=== PATIENT | male | born 1970 | race Caucasian/White ===

== ENCOUNTER 2016-02-10 11:49 | Inpatient (IN) | payer OTHER ==
[2016-02-10 12:38] VITALS: BMI 19.3
--- NOTE | 2016-02-10 15:26 | HP ---
Admission ROS [facility] - [facility] Chief Complaint: NEEDS REHAB TO STOP USING ALCOHOL & COCAINE Allergies/Adverse Reactions: Allergies Allergy/AdvReac Type Severity Reaction Status Date / Time No Known Allergies Allergy Verified 02/10/16 14:57 History of Present Illness: 45 Y/O MAN WITH A LONG HX. OF COCAINE AND ALCOHOL DEPENDENCE IS ADMITTED TO REHAB.PT. WAS SENT HERE BY HIS MANUGRAPHER. PT. HAS HX. OF SEIZURE SINCE CHILDHOOD,HE HAS BEEN OFF MEDS FOR OVER TWO YEARS.HIS LAST SEIZURE MEDICATION WAS KEPPRA. Exam Limitations: No Limitations - Ebola screening Have you traveled outside of the country in the last 21 days: No Have you had contact with anyone from an Ebola affected area: No Have you been sick,other than usual withdrawal symptoms: No Do you have a fever: No - Review of Systems Constitutional: No Symptoms Reported EENT: reports: No Symptoms Reported Respiratory: reports: No Symptoms reported Cardiac: reports: No Symptoms Reported GI: reports: No Symptoms Reported : reports: No Symptoms Reported Musculoskeletal: reports: No Symptoms Reported Integumentary: reports: No Symptoms Reported Neuro: reports: Seizure (> 2 YRS AGO) Endocrine: reports: No Symptoms Reported Hematology: reports: No Symptoms Reported Psychiatric: reports: No Sypmtoms Reported Other Systems: Reviewed and Negative Patient History - Patient Medical History Hx Anemia: No Hx Asthma: No Hx Chronic Obstructive Pulmonary Disease (COPD): No Hx Cancer: No Hx Cardiac Disorders: No Hx Congestive Heart Failure: No Hx Hypertension: No Hx Hypercholesterolemia: No Hx Pacemaker: No HX Cerebrovascular Accident: No Hx Seizures: Yes (LAST OVER TWO YRS. AGO) Hx Dementia: No Hx Diabetes: No Hx Gastrointestinal Disorders: No Hx Liver Disease: No Hx Genitourinary Disorders: No Hx Sexually Transmitted Disorders: No Hx Renal Disease (ESRD): No Hx Thyroid Disease: No Hx Human Immunodeficiency Virus (HIV): No Hx Hepatitis C: No Hx Depression: Yes Hx Suicide Attempt: No Hx Bipolar Disorder: No Hx Schizophrenia: No - Patient Surgical History Past Surgical History: No - PPD History Previous Implant?: Yes Documented Results: Negative w/o proof PPD to be Administered?: Yes - Smoking Cessation Smoking history: Never smoked - Substance & Tx. History Hx Alcohol Use: Yes Hx Substance Use: Yes Substance Use Type: Alcohol, Cocaine Hx Substance Use Treatment: No - Substances Abused Alcohol Route: Oral Frequency: 1-2 times per week (OR 3X/WK) Amount used: VODKA 1/2 Age of first use: 23 Date of Last Use: 02/08/16 Crack Route: Smoking Frequency: 1-2 times per week Amount used: $10.00 Age of first use: 28 Date of Last Use: 02/08/16 Family Disease History - Family Disease History Family Disease History: Diabetes: Mother (HTN), Heart Disease: Father (HTN), Mother Admission Physical Exam [facility] - Vital Signs Vital Signs: Vital Signs - 24 hr 02/10/16 12:36 Temperature 96.5 F L Pulse Rate 90 Respiratory 18 Rate Blood Pressure 114/70 - Physical General Appearance: Yes: Within Normal Limits HEENTM: Yes: Within Normal Limits Respiratory: Yes: Chest Non-Tender, Lungs Clear, Normal Breath Sounds Neck: Yes: Supple Breast: Yes: Breast Exam Deferred Cardiology: Yes: Regular Rhythm, Regular Rate, S1, S2 Abdominal: Yes: Normal Bowel Sounds, Non Tender, Flat, Soft Genitourinary: Yes: Within Normal Limits Back: Yes: Within Normal Limits Musculoskeletal: Yes: Within Normal Limits Extremities: Yes: Within Normal Limits Neurological: Yes: Fully Oriented, Alert Integumentary: Yes: Within Normal Limits Lymphatic: Yes: Within Normal Limits - Diagnostic (1) Alcohol dependence, uncomplicated Current Visit: Yes Status: Acute (2) Cocaine dependence, uncomplicated Current Visit: Yes Status: Acute (3) History of seizure Current Visit: Yes Status: Inactive Cleared for Admission [facility] - Detox or Rehab Claeared for Rehab Admission: Yes [facility] Breath Alcohol Content Breath Alcohol Content: 0 Urine Drug Screen - Results Drug Screen Negative: No Urine Drug Screen Results: ARAVIND-Cocaine
[2016-02-10] MEDS ORDERED: IBUPROFEN 400 MG TABLET (FP) PO PRN (15:44)
[2016-02-10] MEDS ORDERED: MAGNESIUM CITRATE 300 ML BOTTLE PO PRN (15:44)
[2016-02-10] MEDS ORDERED: MAG HYDROX/AL HYDROX/SIMETH 30 ML UNIT-DOSE CUP PO PRN (15:44)
[2016-02-10] MEDS ORDERED: MAGNESIUM HYDROX 2400MG/30ML ORAL SUSPENSION 30 ML CUP PO PRN (15:44)
[2016-02-10] MEDS ORDERED: LOPERAMIDE HCL 2 MG CAPSULE PO PRN (15:44)
[2016-02-10] MEDS ORDERED: ACETAMINOPHEN 325 MG TABLET (FP) PO PRN (15:44)
[2016-02-10 20:05] LABS: URINE APPEARANCE SLCLOUDY; URINE BILIRUBIN NEGATIVE (NEGATIVE); URINE BLOOD NEGATIVE (NEGATIVE); URINE COLOR DKYELLOW; URINE GLUCOSE (UA) NEGATIVE (NEGATIVE); URINE KETONE NEGATIVE (NEGATIVE); URINE NITRITE NEGATIVE (NEGATIVE); URINE PROTEIN NEGATIVE (NEGATIVE); URINE UROBILINOGEN NEGATIVE E.U./dl (0.2-1.0)
[2016-02-10 20:06] LABS: URINE LEUK ESTERASE 3+ (NEGATIVE)
[2016-02-10 20:47] LABS: URINE MUCUS RARE; URINE RBC 19 /hpf (0-3); URINE WBC 108 /hpf (3-5)
[2016-02-10] MEDS: THIAMINE HCL 100 MG TABLET (FP) PO SCH (21:42)
[2016-02-10] MEDS ORDERED: diphenhydrAMINE HCL 50 MG CAPSULE PO PRN (22:00)
[2016-02-11] MEDS: PRENATAL VITAMINS W/ FOLIC ACID TABLET (FP) PO SCH (10:19)
--- NOTE | 2016-02-11 11:13 | HP ---
Psychiatrist Admission - Data Date of interview: 02/11/16 Admission source: [facility] Identifying data: This is the first [facility] inpatient rehabilitation admission for thsi 45 year old single black male, no children, unemployed, domilced. Medical History: hx of seizure since childhood, has been off meds for the past 2 years. Psychiatric History: denies history of psychiatric treatment. Physical/Sexual Abuse/Trauma History: deniues history of sexual, physical and verbal abuse. Vital Signs: Vital Signs - 24 hr 02/10/16 02/10/16 02/11/16 12:36 17:00 00:30 Temperature 96.5 F L 97.1 F L Pulse Rate 90 82 Respiratory 18 18 18 Rate Blood Pressure 114/70 132/80 02/11/16 02/11/16 03:30 07:09 Temperature 96.9 F L Pulse Rate 76 Respiratory 18 18 Rate Blood Pressure 99/69 Allergies/Adverse Reactions: Allergies Allergy/AdvReac Type Severity Reaction Status Date / Time No Known Allergies Allergy Verified 02/10/16 14:57 Date of last physical exam: 02/10/16 Concur with the findings of this exam: Yes - Substance Abuse/Tx History Hx Alcohol Use: Yes (vodka 1/2 pinevery other day) Hx Substance Use: Yes Substance Use Type: Cocaine ($10 every other day) Hx Substance Use Treatment: Yes (no previous tx, first treatment) - Admission Criteria Previous failed treatment: Yes Poor recovery environment: No Comorbidities: No Lacks judgement: Yes Mental Status Exam - Mental Status Exam Alert and Oriented to: Time, Place, Person Cognitive Function: Grossly Intact Patient Appearance: Well Groomed Mood: Hopeful Affect: Appropriate, Mood Congruent Patient Behavior: Appropriate, Cooperative Speech Pattern: Clear, Appropriate Voice Loudness: Normal Thought Process: Goal Oriented Thought Disorder: Not Present Hallucinations: Denies Suicidal Ideation: Denies Homicidal Ideation: Denies Insight/Judgement: Fair Sleep: Difficulty falling asleep Appetite: Fair Muscle strength/Tone: Normal Gait/Station: Normal Psychiatric Findings - Problem List ([place] 1, 2,3) (1) Alcohol dependence, uncomplicated Current Visit: Yes Status: Acute (2) Cocaine dependence, uncomplicated Current Visit: Yes Status: Acute - Initial Treatment Plan Initial Treatment Plan: Patient are made aware about Benadryl PRN for sleeping, will monitor progress as needed.
[2016-02-11 11:27] LABS: MCH 28.3 pg (25.7-33.7); MCHC 32.5 g/dl (32.0-35.9); MEAN CELL VOLUME 87.1 fl (80-96); MEAN PLT VOLUME 7.9 fl (7.5-11.1); PLATELET COUNT 257 K/MM3 (134-434); RDW 14.1 % (11.9-15.9); WHITE BLOOD COUNT 4.8 K/mm3 (4.0-10.0)
[2016-02-11 12:10] LABS: ALBUMIN 3.4 g/dl (3.4-5.0); ANION GAP 7 (8-16); CALCIUM 8.6 mg/dL (8.5-10.1); CO2 27 mmol/L (21-32); CREATININE 1.1 mg/dL (0.7-1.3); GLUCOSE,RANDOM 142 mg/dL (74-106); SGOT/AST 8 U/L (15-37); SGPT/ALT 20 U/L (12-78)
[2016-02-11 12:12] LABS: ALK PHOS 109 U/L (45-117); BILIRUBIN,TOTAL 0.4 mg/dL (0.2-1.0); TOT PROT 6.4 g/dl (6.4-8.2)
[2016-02-11 12:25] LABS: HIV 1 & 2 AB NEGATIVE; HIV 1 AGp24 NEGATIVE
[2016-02-11] MEDS: THIAMINE HCL 100 MG TABLET (FP) PO SCH (21:25)
[2016-02-12] MEDS: PRENATAL VITAMINS W/ FOLIC ACID TABLET (FP) PO SCH (10:06)
--- NOTE | 2016-02-12 15:36 | PN ---
S Progress Note Note: patient c/o insomnia, Benadryl not effective, will add Vistaril 50 mg po hs
[2016-02-12] MEDS: hydrOXYzine PAMOATE 50 MG CAPSULE (FP) PO SCH (21:15)
[2016-02-12] MEDS: THIAMINE HCL 100 MG TABLET (FP) PO SCH (21:15)
[2016-02-13] MEDS: PRENATAL VITAMINS W/ FOLIC ACID TABLET (FP) PO SCH (10:01)
[2016-02-13] MEDS: hydrOXYzine PAMOATE 50 MG CAPSULE (FP) PO SCH (21:14)
[2016-02-13] MEDS: THIAMINE HCL 100 MG TABLET (FP) PO SCH (21:14)
[2016-02-14] MEDS: PRENATAL VITAMINS W/ FOLIC ACID TABLET (FP) PO SCH (09:38)
[2016-02-14] MEDS: hydrOXYzine PAMOATE 50 MG CAPSULE (FP) PO SCH (21:12)
[2016-02-14] MEDS: THIAMINE HCL 100 MG TABLET (FP) PO SCH (21:12)
[2016-02-14] MEDS: guaiFENesin/D-METHORPHAN HB 10 ML UNIT-DOSE CUPS PO PRN (21:50)
[2016-02-14] MEDS: MENTHOL/PHENOL 1 EACH UD MM PRN (21:50)
[2016-02-15] MEDS: PRENATAL VITAMINS W/ FOLIC ACID TABLET (FP) PO SCH (09:59)
[2016-02-15] MEDS: hydrOXYzine PAMOATE 50 MG CAPSULE (FP) PO SCH (21:06)
[2016-02-15] MEDS: THIAMINE HCL 100 MG TABLET (FP) PO SCH (21:06)
[2016-02-15] MEDS: guaiFENesin/D-METHORPHAN HB 10 ML UNIT-DOSE CUPS PO PRN (21:07)
[2016-02-16] MEDS: guaiFENesin/D-METHORPHAN HB 10 ML UNIT-DOSE CUPS PO PRN (06:12)
[2016-02-16] MEDS: MENTHOL/PHENOL 1 EACH UD MM PRN (06:12)
[2016-02-16] MEDS: PRENATAL VITAMINS W/ FOLIC ACID TABLET (FP) PO SCH (09:50)
[2016-02-16] MEDS: P-EPHED 60MG/TRIPROLIDI 2.5MG TABLET PO PRN (09:51)
[2016-02-16] MEDS: hydrOXYzine PAMOATE 50 MG CAPSULE (FP) PO SCH (21:24)
[2016-02-16] MEDS: THIAMINE HCL 100 MG TABLET (FP) PO SCH (21:24)
[2016-02-17] MEDS: PRENATAL VITAMINS W/ FOLIC ACID TABLET (FP) PO SCH (09:41)
[2016-02-17] MEDS: P-EPHED 60MG/TRIPROLIDI 2.5MG TABLET PO PRN (09:45)
[2016-02-17] MEDS: hydrOXYzine PAMOATE 50 MG CAPSULE (FP) PO SCH (21:03)
[2016-02-17] MEDS: THIAMINE HCL 100 MG TABLET (FP) PO SCH (21:03)
[2016-02-17] MEDS: guaiFENesin/D-METHORPHAN HB 10 ML UNIT-DOSE CUPS PO PRN (21:05)
[2016-02-18] MEDS: P-EPHED 60MG/TRIPROLIDI 2.5MG TABLET PO PRN (06:32)
[2016-02-18] MEDS: PRENATAL VITAMINS W/ FOLIC ACID TABLET (FP) PO SCH (10:22)
[2016-02-18] MEDS: THIAMINE HCL 100 MG TABLET (FP) PO SCH (21:28)
[2016-02-18] MEDS: hydrOXYzine PAMOATE 50 MG CAPSULE (FP) PO SCH (21:28)
[2016-02-19] MEDS: P-EPHED 60MG/TRIPROLIDI 2.5MG TABLET PO PRN (06:19)
[2016-02-19] MEDS: guaiFENesin/D-METHORPHAN HB 10 ML UNIT-DOSE CUPS PO PRN (06:20)
[2016-02-19] MEDS: PRENATAL VITAMINS W/ FOLIC ACID TABLET (FP) PO SCH (10:04)
[2016-02-19] MEDS: THIAMINE HCL 100 MG TABLET (FP) PO SCH (21:31)
[2016-02-19] MEDS: hydrOXYzine PAMOATE 50 MG CAPSULE (FP) PO SCH (21:32)
[2016-02-20] MEDS: PRENATAL VITAMINS W/ FOLIC ACID TABLET (FP) PO SCH (10:06)
[2016-02-20] MEDS: hydrOXYzine PAMOATE 50 MG CAPSULE (FP) PO SCH (21:29)
[2016-02-20] MEDS: THIAMINE HCL 100 MG TABLET (FP) PO SCH (21:29)
[2016-02-21] MEDS: PRENATAL VITAMINS W/ FOLIC ACID TABLET (FP) PO SCH (10:21)
[2016-02-21] MEDS: hydrOXYzine PAMOATE 50 MG CAPSULE (FP) PO SCH (21:15)
[2016-02-21] MEDS: THIAMINE HCL 100 MG TABLET (FP) PO SCH (21:15)
[2016-02-22] MEDS: PRENATAL VITAMINS W/ FOLIC ACID TABLET (FP) PO SCH (09:52)
[2016-02-22] MEDS: hydrOXYzine PAMOATE 50 MG CAPSULE (FP) PO SCH (21:14)
[2016-02-22] MEDS: THIAMINE HCL 100 MG TABLET (FP) PO SCH (21:14)
[2016-02-23] MEDS: PRENATAL VITAMINS W/ FOLIC ACID TABLET (FP) PO SCH (10:04)
--- NOTE | 2016-02-23 13:48 | PN ---
Psychiatric Progress Note Vital Signs: Vital Signs Period Temp Pulse Resp BP Sys/Tate Pulse Ox Last 24 Hr 97.1 F 89 18-18 110/70 Date of Session: 02/23/16 Chief Complaint:: "insomnia" HPI: Patient is addressing alcohol, cocaine dependence comorbid alcohol induced sleep disorder. ROS: WNL Current Medications: Active Medications Generic Name Dose Route Start Last Admin Trade Name Freq PRN Reason Stop Dose Admin Acetaminophen 650 mg 02/10/16 15:44 Tylenol - PO Q4H PRN PAIN Al Hydroxide/Mg Hydroxide 30 ml 02/10/16 15:44 Mylanta Oral Suspension - PO Q6H PRN DYSPEPSIA Eucalyptus/Menthol/Phenol/Sorbitol 1 each 02/10/16 15:44 02/16/16 06:12 Cepastat Lozenge - MM 1 each Q4H PRN Administration SORE THROAT Guaifenesin 10 ml 02/10/16 15:44 02/19/16 06:20 Robitussin Dm - PO 10 ml Q6H PRN Administration COUGH Hydroxyzine Pamoate 50 mg 02/12/16 22:00 02/22/16 21:14 Vistaril - PO 50 mg HS MAHI Administration Ibuprofen 400 mg 02/10/16 15:44 02/14/16 21:50 Motrin - PO 400 mg Q6H PRN Administration SEVERE PAIN Loperamide HCl 4 mg 02/10/16 15:44 Imodium - PO Q6H PRN DIARRHEA Magnesium Citrate 300 ml 02/10/16 15:44 Citroma - PO Q48H PRN CONSTIPATION Magnesium Hydroxide 30 ml 02/10/16 15:44 Milk Of Magnesia - PO DAILY PRN CONSTIPATION Multivit/Folic Acid/Iron 1 tab 02/11/16 10:00 02/23/16 10:04 Vitamins (Sjr) - PO 1 tab DAILY MAHI Administration Pseudoephedrine/Triprolidine 1 combo 02/10/16 15:44 02/19/16 06:19 Actifed - PO 1 combo TID PRN Administration NASAL CONGESTION Thiamine HCl 100 mg 02/10/16 22:00 02/22/16 21:14 Vitamin B1 - PO 100 mg HS MAHI Administration Medication(s) Change(s): add Sinequan 50 mg po hs Current Side Effect: No Lab tests ordered: No Lab tests reviewed: Yes Provider note:: Patient reports he has not been sleeping since he came to [facility], Benadryl and Vistaril not effective, discussed indications and properties of Sinequan with the patient, he is willing to take meds, natalie start 50 mg po hs, continue to monitor progress. Total face to face time:: 15 Mental Status Exam - Mental Status Exam Alert and Oriented to: Time, Place, Person Cognitive Function: Good Patient Appearance: Well Groomed Mood: Hopeful Affect: Appropriate, Mood Congruent Patient Behavior: Appropriate, Cooperative Speech Pattern: Clear, Appropriate Voice Loudness: Normal Thought Process: Intact, Goal Oriented Hallucinations: Denies Suicidal Ideation: Denies Homicidal Ideation: Denies Insight/Judgement: Good Sleep: Poorly, Difficulty falling asleep Appetite: Good Muscle strength/Tone: Normal Gait/Station: Normal Psychiatric Treatment Plan - Problem List (1) Alcohol dependence, uncomplicated Current Visit: Yes (2) Cocaine dependence, uncomplicated Current Visit: Yes (3) Alcohol induced sleep disorders Current Visit: Yes
[2016-02-23] MEDS: hydrOXYzine PAMOATE 50 MG CAPSULE (FP) PO SCH (21:10)
[2016-02-23] MEDS: DOXEPIN HCL 50 MG CAPSULE PO SCH (21:10)
[2016-02-23] MEDS: THIAMINE HCL 100 MG TABLET (FP) PO SCH (21:10)
[2016-02-24] MEDS: PRENATAL VITAMINS W/ FOLIC ACID TABLET (FP) PO SCH (10:16)
[2016-02-24] MEDS: THIAMINE HCL 100 MG TABLET (FP) PO SCH (21:39)
[2016-02-24] MEDS: DOXEPIN HCL 50 MG CAPSULE PO SCH (21:39)
[2016-02-24] MEDS: hydrOXYzine PAMOATE 50 MG CAPSULE (FP) PO SCH (21:39)
[2016-02-25] MEDS: PRENATAL VITAMINS W/ FOLIC ACID TABLET (FP) PO SCH (10:21)
[2016-02-25] MEDS: hydrOXYzine PAMOATE 50 MG CAPSULE (FP) PO SCH (21:31)
[2016-02-25] MEDS: THIAMINE HCL 100 MG TABLET (FP) PO SCH (21:31)
[2016-02-25] MEDS: DOXEPIN HCL 50 MG CAPSULE PO SCH (21:31)
[2016-02-26] MEDS: PRENATAL VITAMINS W/ FOLIC ACID TABLET (FP) PO SCH (09:39)
[2016-02-26] MEDS: DOXEPIN HCL 50 MG CAPSULE PO SCH (21:29)
[2016-02-26] MEDS: THIAMINE HCL 100 MG TABLET (FP) PO SCH (21:29)
[2016-02-26] MEDS: hydrOXYzine PAMOATE 50 MG CAPSULE (FP) PO SCH (21:30)
[2016-02-27] MEDS: PRENATAL VITAMINS W/ FOLIC ACID TABLET (FP) PO SCH (09:44)
[2016-02-27] MEDS: hydrOXYzine PAMOATE 50 MG CAPSULE (FP) PO SCH (21:13)
[2016-02-27] MEDS: DOXEPIN HCL 50 MG CAPSULE PO SCH (21:13)
[2016-02-27] MEDS: THIAMINE HCL 100 MG TABLET (FP) PO SCH (21:13)
[2016-02-28] MEDS: PRENATAL VITAMINS W/ FOLIC ACID TABLET (FP) PO SCH (10:07)
[2016-02-28] MEDS: hydrOXYzine PAMOATE 50 MG CAPSULE (FP) PO SCH (21:12)
[2016-02-28] MEDS: DOXEPIN HCL 50 MG CAPSULE PO SCH (21:12)
[2016-02-28] MEDS: THIAMINE HCL 100 MG TABLET (FP) PO SCH (21:12)
[2016-02-29] MEDS: PRENATAL VITAMINS W/ FOLIC ACID TABLET (FP) PO SCH (09:57)
[2016-02-29] MEDS: THIAMINE HCL 100 MG TABLET (FP) PO SCH (21:15)
[2016-02-29] MEDS: hydrOXYzine PAMOATE 50 MG CAPSULE (FP) PO SCH (21:15)
[2016-02-29] MEDS: DOXEPIN HCL 50 MG CAPSULE PO SCH (21:15)
[2016-03-01] MEDS: PRENATAL VITAMINS W/ FOLIC ACID TABLET (FP) PO SCH (10:28)
[2016-03-01] MEDS: DOXEPIN HCL 50 MG CAPSULE PO SCH (21:11)
[2016-03-01] MEDS: hydrOXYzine PAMOATE 50 MG CAPSULE (FP) PO SCH (21:11)
[2016-03-01] MEDS: THIAMINE HCL 100 MG TABLET (FP) PO SCH (21:11)
[2016-03-02] MEDS: PRENATAL VITAMINS W/ FOLIC ACID TABLET (FP) PO SCH (10:08)
[2016-03-02] MEDS: DOXEPIN HCL 50 MG CAPSULE PO SCH (21:20)
[2016-03-02] MEDS: hydrOXYzine PAMOATE 50 MG CAPSULE (FP) PO SCH (21:20)
[2016-03-02] MEDS: THIAMINE HCL 100 MG TABLET (FP) PO SCH (21:21)
[2016-03-03] MEDS: PRENATAL VITAMINS W/ FOLIC ACID TABLET (FP) PO SCH (10:20)
[2016-03-03] MEDS: DOXEPIN HCL 50 MG CAPSULE PO SCH (21:05)
[2016-03-03] MEDS: hydrOXYzine PAMOATE 50 MG CAPSULE (FP) PO SCH (21:06)
[2016-03-03] MEDS: THIAMINE HCL 100 MG TABLET (FP) PO SCH (21:06)
[2016-03-04] MEDS: PRENATAL VITAMINS W/ FOLIC ACID TABLET (FP) PO SCH (10:22)
--- NOTE | 2016-03-04 14:49 | PN ---
[facility] Progress Note Note: patient c/o insomnia, Sinequan 50 mg po hs not effective will increase 75 mg po hs.
[2016-03-04] MEDS: DOXEPIN HCL 25 MG CAPSULE PO SCH (21:25)
[2016-03-04] MEDS: hydrOXYzine PAMOATE 50 MG CAPSULE (FP) PO SCH (21:25)
[2016-03-04] MEDS: THIAMINE HCL 100 MG TABLET (FP) PO SCH (21:25)
[2016-03-05] MEDS: PRENATAL VITAMINS W/ FOLIC ACID TABLET (FP) PO SCH (09:59)
[2016-03-05] MEDS: THIAMINE HCL 100 MG TABLET (FP) PO SCH (21:16)
[2016-03-05] MEDS: DOXEPIN HCL 25 MG CAPSULE PO SCH (21:16)
[2016-03-05] MEDS: hydrOXYzine PAMOATE 50 MG CAPSULE (FP) PO SCH (21:16)
[2016-03-06] MEDS: PRENATAL VITAMINS W/ FOLIC ACID TABLET (FP) PO SCH (10:02)
[2016-03-06] MEDS: DOXEPIN HCL 25 MG CAPSULE PO SCH (21:15)
[2016-03-06] MEDS: THIAMINE HCL 100 MG TABLET (FP) PO SCH (21:15)
[2016-03-06] MEDS: hydrOXYzine PAMOATE 50 MG CAPSULE (FP) PO SCH (21:15)
[2016-03-07] MEDS: PRENATAL VITAMINS W/ FOLIC ACID TABLET (FP) PO SCH (10:28)
[2016-03-07] MEDS: THIAMINE HCL 100 MG TABLET (FP) PO SCH (21:19)
[2016-03-07] MEDS: hydrOXYzine PAMOATE 50 MG CAPSULE (FP) PO SCH (21:19)
[2016-03-07] MEDS: DOXEPIN HCL 25 MG CAPSULE PO SCH (21:19)
[2016-03-08 06:53] VITALS: BP 128/72; PULSE 79; TEMP 97.6
--- NOTE | 2016-03-08 09:40 | PN ---
Psychiatric Progress Note Vital Signs: Vital Signs Period Temp Pulse Resp BP Sys/Tate Pulse Ox Last 24 Hr 97.6 F 79 18-18 128/72 Date of Session: 03/08/16 Chief Complaint:: discharge visit HPI: Patient has addressed alcohol, cocaine dependence comorbid alcohol induced sleep disorder. ROS: WNL Current Medications: Active Medications Generic Name Dose Route Start Last Admin Trade Name Freq PRN Reason Stop Dose Admin Acetaminophen 650 mg 02/10/16 15:44 Tylenol - PO Q4H PRN PAIN Al Hydroxide/Mg Hydroxide 30 ml 02/10/16 15:44 Mylanta Oral Suspension - PO Q6H PRN DYSPEPSIA Doxepin HCl 75 mg 03/04/16 22:00 03/07/16 21:19 Sinequan - PO 75 mg HS MAHI Administration Eucalyptus/Menthol/Phenol/Sorbitol 1 each 02/10/16 15:44 02/16/16 06:12 Cepastat Lozenge - MM 1 each Q4H PRN Administration SORE THROAT Guaifenesin 10 ml 02/10/16 15:44 02/19/16 06:20 Robitussin Dm - PO 10 ml Q6H PRN Administration COUGH Hydroxyzine Pamoate 50 mg 02/12/16 22:00 03/07/16 21:19 Vistaril - PO 50 mg HS MAHI Administration Ibuprofen 400 mg 02/10/16 15:44 02/14/16 21:50 Motrin - PO 400 mg Q6H PRN Administration SEVERE PAIN Loperamide HCl 4 mg 02/10/16 15:44 Imodium - PO Q6H PRN DIARRHEA Magnesium Citrate 300 ml 02/10/16 15:44 Citroma - PO Q48H PRN CONSTIPATION Magnesium Hydroxide 30 ml 02/10/16 15:44 Milk Of Magnesia - PO DAILY PRN CONSTIPATION Multivit/Folic Acid/Iron 1 tab 02/11/16 10:00 03/07/16 10:28 Vitamins (Sjr) - PO 1 tab DAILY MAHI Administration Pseudoephedrine/Triprolidine 1 combo 02/10/16 15:44 02/19/16 06:19 Actifed - PO 1 combo TID PRN Administration NASAL CONGESTION Thiamine HCl 100 mg 02/10/16 22:00 03/07/16 21:19 Vitamin B1 - PO 100 mg HS MAHI Administration Current Side Effect: No Lab tests ordered: No Lab tests reviewed: Yes Provider note:: Patient has completed today his treatment and met his identified goals, he will continue at [facility] outpatient treatment program. He gained insights into his addiction and understands the negative impact alcohol, drugs on his major life areas. Patient reports that Sinequan was effective in terms of sleep improvement and anxiety reduction, no side- effects reported, scripts provided for 30 days, patient was encouraged to utilize all supports availbable to prevent relapses. Patient is stable for discharge today. Total face to face time:: 35 Mental Status Exam - Mental Status Exam Alert and Oriented to: Time Cognitive Function: Fair Patient Appearance: Well Groomed Mood: Hopeful Affect: Appropriate Patient Behavior: Appropriate Speech Pattern: Clear, Appropriate Voice Loudness: Normal Thought Process: Intact, Goal Oriented Thought Disorder: Not Present Hallucinations: Denies Suicidal Ideation: Denies Homicidal Ideation: Denies Insight/Judgement: Fair Sleep: Fair Appetite: Fair Muscle strength/Tone: Normal Gait/Station: Normal Psychiatric Treatment Plan - Problem List (1) Alcohol dependence, uncomplicated Current Visit: Yes (2) Cocaine dependence, uncomplicated Current Visit: Yes (3) Alcohol induced sleep disorders Current Visit: Yes
[2016-03-08] MEDS: PRENATAL VITAMINS W/ FOLIC ACID TABLET (FP) PO SCH (10:30)
== END 2016-03-08 11:15 | disposition home or self-care (01) | DRG 58 ==
LOC: YASAS 11:49 → Y5N 15:05
PROVIDERS: ADMIT Psychiatry & Neurology Psychiatry; ATTEND Psychiatry & Neurology Psychiatry
PROC: HZ42ZZZ Group Counseling for Substance Abuse Treatment, Cognitive-Behavioral (ICD-10-PCS; principal; 2016-02-10)
DX: F10.282 Alcohol dependence with alcohol-induced sleep disorder (principal); F14.20 Cocaine dependence, uncomplicated; Z86.69 Personal history of other diseases of the nervous system and sense organs
CPT/HCPCS: 36415; 80053; 81003; 81015; 85027; 86593; 87389; 93005; 93010